=== PATIENT | female | born 1980 | race Two or more races ===

== ENCOUNTER 2024-07-03 13:38 | Emergency (ER) | payer OTHER ==
[2024-07-03 14:10] VITALS: BP 126/53; PULSE 76; RESP 18; TEMP 98.5; BMI 32.3
[2024-07-03] MEDS ORDERED: DIPHTH,PERTUSS(ACELL),TET 0.5 ML DISP.SYRIN IM ONE (15:19)
[2024-07-03] MEDS ORDERED: BACITRACIN ZINC 15 GM TUBE TOPICAL OINTMENT ONE (15:19)
[2024-07-03] MEDS ORDERED: IBUPROFEN 600 MG TABLET (FP) PO ONE (15:19)
[2024-07-03] MEDS: BACITRACIN ZINC 15 GM TUBE TOPICAL OINTMENT TP ONE (15:25)
[2024-07-03] MEDS: IBUPROFEN 600 MG TABLET (FP) PO ONE (15:25)
[2024-07-03] MEDS: DIPHTH,PERTUSS(ACELL),TET 0.5 ML DISP.SYRIN IM ONE (15:26)
== END 2024-07-03 15:29 | disposition home or self-care (01) ==
LOC: JERFT 13:38
PROC: 3E0234Z Introduction of Serum, Toxoid and Vaccine into Muscle, Percutaneous Approach (ICD-10-PCS; principal; 2024-07-03)
DX: S93.402A Sprain of unspecified ligament of left ankle, initial encounter (principal); S80.211A Abrasion, right knee, initial encounter; Z23 Encounter for immunization; X50.1XXA Overexertion from prolonged static or awkward postures, initial encounter
CPT/HCPCS: 73560-TC-RT-FY; 73610-TC-LT-FY; 90715; 99284-25